=== PATIENT | male | born 1960 | race Caucasian/White ===

== ENCOUNTER 2021-06-07 23:57 | Emergency (ER) | payer BC ==
[~2021-06-07] VITALS: Ht 172.7 cm; Wt 70.3 kg
[2021-06-07 23:57] VITALS: BP 135/70
[2021-06-08] MEDS ORDERED: TDAP [DIPH/PERTUSSIS/TET] 0.5 ML VIAL IM ONE ×2 (00:55→01:00)
[2021-06-08] MEDS ORDERED: LIDOCAINE 2%-EPI 1:100,000 30 ML VIAL ONE (00:55)
[2021-06-08] MEDS ORDERED: LIDOCAINE 1%-EPI 1:100,000 20 ML VIAL TP ONE (01:00)
== END 2021-06-08 03:08 | disposition home or self-care (01) ==
LOC: ER 06-08 00:06
DX: S61.512A Laceration without foreign body of left wrist, initial encounter (principal); E78.5 Hyperlipidemia, unspecified; Z86.73 Personal history of transient ischemic attack (TIA), and cerebral infarction without residual deficits; W19.XXXA Unspecified fall, initial encounter; Y93.89 Activity, other specified; Y92.89 Other specified places as the place of occurrence of the external cause; Y99.8 Other external cause status
CPT/HCPCS: 12002; 73110; 90471; 90715; 99283; A6403; J3490